=== PATIENT | male | born 1955 | race Hispanic/Latino ===

== ENCOUNTER 2017-06-11 23:45 | Emergency (ER) | payer MEDICAID ==
[2017-06-11 23:59] VITALS: BMI 23.4
[2017-06-12 00:03] VITALS: RESP 19; TEMP 98.1
--- NOTE | 2017-06-12 00:22 | C.PDOC ---
History Of Present Illness Patient presents to the ER via EMS with police escort because he's under arrest ; he complains of bilateral foot pain and admits to drinking 8 cans of beer today. Patient reports he is homeless; denies chest pain, palpitations, or SOB. Time Seen by Provider: 06/12/17 00:22 Chief Complaint (Nursing): Medical Clearance History Per: Patient History/Exam Limitations: no limitations Onset/Duration Of Symptoms: Hrs Current Symptoms Are (Timing): Still Present Severity: Mild Pain Scale Rating Of: 2 Recent travel outside of the [place]: No Past Medical History Reviewed: Historical Data, Nursing Documentation, Vital Signs Vital Signs: Last Vital Signs Temp 98.1 F 06/11/17 23:59 Pulse 98 H 06/12/17 03:43 Resp 19 06/12/17 03:43 BP 153/70 H 06/12/17 03:43 Pulse Ox 95 06/12/17 04:09 - Medical History PMH: Anxiety, Asthma, Bipolar Disorder, CHF, HTN, Pancreatitis, Peripheral Edema - [facility] Procedures ALCOHOL DETOXIFICATION (10/26/14) DX ULTRASOUND-ABDOMEN (10/26/14) INSERTION OF ENDOTRACHEAL AIRWAY INTO TRACHEA, VIA OPENING (07/18/15) PERCUTANEOUS ABDOMINAL DRAINAGE (10/26/14) RESPIRATORY VENTILATION, 24-96 CONSECUTIVE HOURS (07/18/15) Family History: States: No Known Family Hx - Social History Hx Tobacco Use: Yes Hx Alcohol Use: Yes (family found with bottle of beers at home) Hx Substance Use: Yes - Immunization History Hx Tetanus Toxoid Vaccination: No Hx Influenza Vaccination: No Hx Pneumococcal Vaccination: No Review Of Systems Constitutional: Negative for: Fever, Chills Cardiovascular: Negative for: Chest Pain, Palpitations Respiratory: Negative for: Shortness of Breath Gastrointestinal: Negative for: Nausea, Vomiting, Abdominal Pain Musculoskeletal: Positive for: Foot Pain (Bilateral) Skin: Positive for: Rash Neurological: Negative for: Weakness Psych: Negative for: Anxiety Physical Exam - Physical Exam Appears: Non-toxic, No Acute Distress Skin: Warm, Dry Head: Normacephalic Eye(s): bilateral: Normal Inspection Oral Mucosa: Moist Neck: Supple Chest: Symmetrical, No Tenderness Cardiovascular: Rhythm Regular Respiratory: No Rales, Rhonchi (Scattered), No Wheezing Gastrointestinal/Abdominal: Soft, No Tenderness, Hernia (Large reducible periumbilical) Back: No CVA Tenderness Extremity: Pedal Edema (Bilateral), Other (Venoustasis skin changes to bilateral lower extremities.) Pulses: Left Dorsalis Pedis: Normal, Right Dorsalis Pedis: Normal Neurological/Psych: Oriented x3 Gait: Steady ED Course And Treatment - Laboratory Results Result Diagrams: 06/12/17 01:00 06/12/17 01:25 O2 Sat by Pulse Oximetry: 95 (Room air) Pulse Ox Interpretation: Normal - Radiology CXR: Interpreted by Me, Viewed By Me CXR Interpretation: No: Infiltrates, Fracture, Pnemothorax Progress Note: EKG, blood work, urinalysis, and CXR ordered. Reevaluation Time: 04:06 Reassessment Condition: Improved Disposition Counseled Patient/Family Regarding: Studies Performed, Diagnosis, Need For Followup - Disposition Referrals: [facility] [Outside] Disposition: HOME/ ROUTINE Disposition Time: 00:22 Condition: GOOD Additional Instructions: Patient is medically cleared for incarceration Instructions: Leg Pain (ED) Forms: [facility] (Armenian) - Clinical Impression Clinical Impression: Medical assessment, Chronic leg pain - Scribe Statement The provider has reviewed the documentation as recorded by the Scribe Curtis Toth All medical record entries made by the Scribe were at my direction and personally dictated by me. I have reviewed the chart and agree that the record accurately reflects my personal performance of the history, physical exam, medical decision making, and the department course for this patient. I have also personally directed, reviewed, and agree with the discharge instructions and disposition.
[2017-06-12 01:03] LABS: BASO # 0.1 K/uL (0.0-0.2); BASO % 1.4 % (0.0-2.0); EOS # 0.3 K/uL (0.0-0.7); EOS % 3.8 % (0.0-4.0); HEMOGLOBIN 11.5 g/dL (12.0-18.0); LYMPH % 14.2 % (20.0-40.0); MEAN CELL VOLUME 87.3 fL (80.0-94.0); MEAN CORPUSCULAR HEMOGLOBIN 29.5 pg (27.0-31.0); MEAN CORPUSCULAR HGB CONC 33.8 g/dL (33.0-37.0); MEAN PLATELET VOLUME 7.6 fL (7.2-11.7); MONO # 1.1 K/uL (0.0-0.8); MONO % 14.8 % (0.0-10.0); NEUT # 4.7 K/uL (1.8-7.0); NEUT % 65.8 % (50.0-75.0); RBC 3.88 Mil/uL (4.40-5.90); RED CELL DISTRIBUTION WIDTH 19.1 % (11.5-14.5); WHITE BLOOD COUNT 7.1 K/uL (4.8-10.8)
[2017-06-12 01:05] LABS: URINE BILIRUBIN NEGATIVE (NEGATIVE); URINE CLARITY Clear (Clear); URINE COLOR Yellow (YELLOW); URINE GLUCOSE (UA) NORMAL (Normal)
[2017-06-12 01:06] LABS: URINE LEUKOCYTE ESTERASE NEG Leu/uL (Negative); URINE NITRATE NEGATIVE (NEGATIVE); URINE PROTEIN NEGATIVE (NEGATIVE)
[2017-06-12 01:12] LABS: INR 1.5; PROTHROMBIN TIME 17.5 SECONDS (9.7-12.2)
[2017-06-12 01:28] LABS: URINE BLOOD NEGATIVE (NEGATIVE)
[2017-06-12 01:42] LABS: ALBUMIN 3.1 g/dL (3.5-5.0); ALT/SGPT 40 U/L (21-72); AST/SGOT 81 U/L (17-59); BLOOD UREA NITROGEN 7 mg/dL (9-20); CALCIUM 7.9 mg/dl (8.6-10.4); GFR AFRICAN-AMERICAN > 60; GFR NON-AFRICAN AMERICAN > 60; LIPASE 130 U/L (23-300)
[2017-06-12 01:43] LABS: ALB/GLOB RATIO 0.6 (1.0-2.1)
[2017-06-12 03:43] VITALS: BP 153/70; PULSE 98; O2SAT 95
--- NOTE | 2017-06-12 10:11 | RAD ---
PROCEDURE: CHEST RADIOGRAPH, 1 VIEW HISTORY: abd pain COMPARISON: 11/02/2014 FINDINGS: LUNGS: Patchy opacity at right lung base. Possible early pneumonia. Followup advised. No abnormal opacity elsewhere. PLEURA: No pneumothorax or pleural fluid seen. CARDIOVASCULAR: Normal. OSSEOUS STRUCTURES: No significant abnormalities. VISUALIZED UPPER ABDOMEN: Normal. OTHER FINDINGS: None. IMPRESSION: Patchy opacity at right lung base. Possible pneumonia. Followup advised.
== END 2017-06-12 05:11 | disposition home or self-care (01) ==
LOC: C.ER 23:45
DX: Z04.8 Encounter for examination and observation for other specified reasons (principal); M79.672 Pain in left foot; M79.671 Pain in right foot; G89.29 Other chronic pain; I10 Essential (primary) hypertension; F31.9 Bipolar disorder, unspecified; Z65.3 Problems related to other legal circumstances
CPT/HCPCS: 71045; 80053; 80320; 81001; 83690; 85025; 85610; 85730; 96374; 99284; J1885